=== PATIENT | male | born 1945 | race Caucasian/White ===

== ENCOUNTER 2016-07-15 03:25 | Emergency (ER) | payer MEDICARE, BC ==
[~2016-07-15 03:25] MED LIST: ANTIVERT25 MG PO; ASPIRIN325 MG PO; ATIVAN0.5 M1 PO; CRESTOR10 MG; FLUOXETINE HCL20 MG PO; LEVOXYL150 MC1 PO; LIPITOR80 M1 PO; LISINOPRIL5 MG; LORAZEPAM0.5 MG; METOPROLOL TART25 MG; PLAVIX75 MG; TOPROL XL25 MG PO; TRICOR145 M1; VIAGRA; VIAGRA25 MG PO; VYTORIN 10/40 T1 TAB; VYTORIN 10/80 T1 TAB PO; ZETIA10 M1 PO; ZETIA10 MG; [UNRECOGNIZED DRUG - OTHER]
[2016-07-15 04:22] LABS: BASO % 0.8 % (0-2); EOSINOPHIL ABSOLUTE COUNT 0.1 tho/cmm (0.0-0.7); HCT-HEMATOCRIT 40.7 % (36.0-53.5); HGB-HEMOGLOBIN 14.1 gm/dl (13.5-17.0); IMMATURE GRANULOCYTES ABSOLUTE 0.01 tho/cmm (0-0.03); IMMATURE GRANULOCYTES PERCENT 0.3 % (0-0.3); LYMPH % 35.1 % (20-45); LYMPH ABSOLUTE COUNT 1.4 tho/cmm (0.8-4.5); MCH (MEAN CORPUSCULAR HGB) 32.9 pg (28.0-32.0); MCHC MEAN CORPUSCULAR HGB CONC 34.6 % (32.0-36.0); MCV (MEAN CELL VOLUME) 94.9 fl (82.0-96.0); MEAN PLATELET VOLUME 9.6 cmc (9.4-12.4); MONO % 17.7 % (0-12); MONOCYTE ABSOLUTE COUNT 0.7 tho/cmm (0.0-1.2); NEUTROPHIL ABSOLUTE COUNT 1.8 tho/cmm (1.6-8.0); NEUTROPHIL-AUTOMATED 1.8 tho/cmm (1.6-8.0); NEUTROPHILS % 44.1 % (40-80); PLATELET COUNT 160 tho/cmm (150-450); RED BLOOD COUNT 4.29 mil/cmm (4.40-5.70); RED CELL DISTRIBUTION WIDTH 13.5 % (12.4-16.4)
[2016-07-15 04:38] LABS: ALCOHOL (ETOH) 224 mg/dl (<10); ANION GAP 14 mmol/L (0-20); BLOOD UREA NITROGEN 18 mg/dl (6-24); CALCIUM 8.7 mg/dl (8.5-10.5); CARBON DIOXIDE-VENOUS 28 mmol/L (22-32); CHLORIDE 104 mmol/l (96-110); GLUCOSE 103 mg/dL (70-110); MAGNESIUM 1.7 mg/dl (1.8-2.6); POTASSIUM 3.4 mmol/L (3.7-5.1); SODIUM 143 mmol/L (135-145); eGFR VALUE FOR BLACK 87 mL/Min
== END 2016-07-15 05:41 ==
LOC: EDMED 03:25
PROVIDERS: Emergency Medicine
DX: F10.129 Alcohol abuse with intoxication, unspecified (principal); Y90.7 Blood alcohol level of 200-239 mg/100 ml; Z85.46 Personal history of malignant neoplasm of prostate
CPT/HCPCS: G0480; J2405; J7030